=== PATIENT | female | born 1995 | race Two or more races ===

== ENCOUNTER → 2024-11-25 | Outpatient (CLI) | payer MEDICAID, SELFPAY ==
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
== END | disposition home or self-care (01) ==
PROVIDERS: Referring Provider Orthopaedic Surgery; Visit Provider Orthopaedic Surgery
DX: S32.591A Other specified fracture of right pubis, initial encounter for closed fracture (principal); S32.592A Other specified fracture of left pubis, initial encounter for closed fracture; S82.491A Other fracture of shaft of right fibula, initial encounter for closed fracture; S42.021A Displaced fracture of shaft of right clavicle, initial encounter for closed fracture; V89.2XXA Person injured in unspecified motor-vehicle accident, traffic, initial encounter
CPT/HCPCS: 72190; 73000; 73590

== ENCOUNTER → 2025-01-01 | Outpatient (CLI) | payer MEDICAID, SELFPAY ==
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
--- NOTE | 2025-01-01 10:51 | XR_ITS ---
Examination: Tibia-Fibula, right , 2 views Technique: Tibia-fibula AP lateral 2 views Date and time of exam: January 01, 2025 1106 hours Comparison November 25, 2024 INDICATIONS: Fibular fracture history FINDINGS: Partial healing fracture fibular neck Stable and satisfactory alignment IMPRESSION: Partial healing fracture fibular neck suggest continued follow-up
== END | disposition home or self-care (01) ==
LOC: SDIM 10:31
PROVIDERS: PCP Registered Nurse Community Health; Referring Provider Orthopaedic Surgery; Visit Provider Orthopaedic Surgery
DX: M25.511 Pain in right shoulder (principal); M79.661 Pain in right lower leg; S82.451A Displaced comminuted fracture of shaft of right fibula, initial encounter for closed fracture; S42.021S Displaced fracture of shaft of right clavicle, sequela; S32.511S Fracture of superior rim of right pubis, sequela; V49.5 Passenger injured in collision with other and unspecified motor vehicles in traffic accident
CPT/HCPCS: 72190; 73000; 73590

== ENCOUNTER → 2025-03-05 | Outpatient (CLI) | payer MEDICAID, SELFPAY ==
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
== END | disposition home or self-care (01) ==
PROVIDERS: PCP Registered Nurse Community Health; Referring Provider Orthopaedic Surgery; Visit Provider Orthopaedic Surgery
DX: S82.451D Displaced comminuted fracture of shaft of right fibula, subsequent encounter for closed fracture with routine healing (principal); V49.59XD Passenger injured in collision with other motor vehicles in traffic accident, subsequent encounter; M25.511 Pain in right shoulder; Z87.81 Personal history of (healed) traumatic fracture
CPT/HCPCS: 72190; 73000; 73560

== ENCOUNTER → 2025-05-09 | Outpatient (CLI) | payer MEDICAID, SELFPAY ==
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
== END | disposition home or self-care (01) ==
LOC: CDIM 11:34
PROVIDERS: PCP Physician Assistant; Referring Provider Orthopaedic Surgery; Visit Provider Orthopaedic Surgery
DX: M79.661 Pain in right lower leg (principal); Z87.81 Personal history of (healed) traumatic fracture
CPT/HCPCS: 73590